=== PATIENT | female | born 1995 | race African-American/Black ===

== ENCOUNTER 2022-08-10 10:29 | Emergency (ER) | payer OTHER ==
[~2022-08-10] VITALS: Ht 170.2 cm; Wt 81.2 kg
[2022-08-10 10:30] VITALS: BP_SYST 119
--- NOTE | 2022-08-10 10:30 | NUR ---
BROUGHT BACK TO BED #6 AND TRIAGED, REPORT GIVEN TO CHARLOTTE
--- NOTE | 2022-08-10 10:35 | NUR ---
Bernardino stratton in ED - 08/10/22 at 1048 by JENNIFER BROUGHT BACK TO BED #6 AND TRIAGED, REPORT GIVEN TO [place]TE
[2022-08-10] MEDS ORDERED: ONDANSETRON HCL 4 MG/2 ML VIAL IVP ONE (10:45)
[2022-08-10] MEDS ORDERED: NACL 0.9% 1,000 ML IV ONE (10:45)
--- NOTE | 2022-08-10 10:45 | NUR ---
RECEIVED PT FROM DALY BARCENAS. PT BIB MOTHER WITH C/O N/V AND DIARRHEA, PT IS 14 WKS AND STATES SHE HAD SPOTTING THIS MORNING. PT IS AAOX4. ON R/A. ABDOMEN SOFT, NONTENDER, NONDISTENDED. BOWEL SOUNDS ACTIVE. SKIN INTACT. DENIES PAIN. SIDERAILS UP X2, MOTHER AT BEDSIDE.
--- NOTE | 2022-08-10 11:00 | NUR ---
URINE OBTAINED AND TAKEN TO LAB.
[2022-08-10 11:04] LABS: BILIRUBIN,URINE NEGATIVE (NEGATIVE); BLOOD, URINE NEGATIVE (NEGATIVE); CLARITY/URINE CLEAR (CLEAR); COLOR,URINE YELLOW (YELLOW); GLUCOSE,URINE NEGATIVE (NEGATIVE); KETONES,URINE NEGATIVE (NEGATIVE); LEUKOCYTE ESTERASE ,URINE NEGATIVE (NEGATIVE); NITRITE, URINE NEGATIVE (NEGATIVE); PH,URINE 6.5 (5.0-8.0); PROTEIN URINE NEGATIVE (NEGATIVE); UROBILINOGEN,URINE 0.2 (0.2-1.0)
[2022-08-10 11:16] LABS: BASOPHILS % (AUTO) 0.2 % (0.0-2.0); EOSINOPHILS % (AUTO) 0.3 % (0.0-4.0); HEMATOCRIT 33.5 % (36-48); HEMOGLOBIN 11.6 g/dL (12.0-16.0); LYMPHOCYTES # (AUTO) 1.2 K/uL (1.0-5.5); LYMPHOCYTES % (AUTO) 17.3 % (20.5-51.5); MEAN CORPUSCULAR HEMOGLOBIN 31 pg (27-31); MEAN CORPUSCULAR HGB CONC 35 % (32-36); MEAN CORPUSCULAR VOLUME 90 fL (79.0-98.0); MONOCYTES # (AUTO) 0.7 K/uL (0.0-1.0); MONOCYTES % (AUTO) 9.9 % (1.7-9.3); NEUTROPHILS # (AUTO) 4.9 K/uL (1.8-7.7); NEUTROPHILS % (AUTO) 72.3 % (40.0-70.0); PLATELET COUNT (AUTO) 148 K/uL (130-430); RED BLOOD CELL COUNT(AUTO) 3.75 MIL/uL (4.2-6.2); RED CELL DISTRIBUTION WIDTH 17.1 % (9.0-15.0); WHITE BLOOD COUNT (AUTO) 6.7 K/uL (4.8-10.8)
--- NOTE | 2022-08-10 11:39 | NUR ---
PT TAKEN TO U/S AT THIS TIME.
[2022-08-10 11:40] LABS: CALCIUM 8.9 mg/dL (8.4-11.0); CREATININE 0.65 mg/dL (0.55-1.30); POTASSIUM 3.6 mmol/L (3.5-5.1)
[2022-08-10 12:21] LABS: ALBUMIN 3.2 g/dL (3.4-4.8)
[2022-08-10 12:23] LABS: TOTAL BILIRUBIN 0.1 mg/dL (0.0-1.0)
[2022-08-10] MEDS ORDERED: RHO(D) IMMUNE GLOBULIN/MALTOSE 1500 UNITS/1.3 ML (WINHRO) INJ ONE (13:15)
--- NOTE | 2022-08-10 15:23 | NUR ---
RHOGAM IM GIVEN TO LEFT BUTTOCK. PT INFORMED OF ALLERGIC REACTION S/S. PT VERBALIZED UNDERSTANDING. PT WILL MONITORED FOR REACTION.
--- NOTE | 2022-08-10 16:00 | NUR ---
PT MONITORED FOR RHOGAM RX AND SHOWS NO S/S OF REACTION AT THIS TIME. Patient given written and verbal discharge instructions and verbalizes understanding. ER MD discussed with patient the results and treatment provided. Patient in stable condition. ID arm band removed. IV catheter removed intact and dressing applied, no active bleeding. Patient educated on pain management and to follow up with PMD. Pain Scale 0/10. . Opportunity for questions provided and answered. Medication side effect fact sheet provided.
[2022-08-10 16:10] VITALS: BP_SYST 104
== END 2022-08-10 16:00 | disposition home or self-care (01) ==
LOC: SED 10:29
DX: O26.892 Other specified pregnancy related conditions, second trimester (principal); O20.9 Hemorrhage in early pregnancy, unspecified; O98.512 Other viral diseases complicating pregnancy, second trimester; Z3A.14 14 weeks gestation of pregnancy
CPT/HCPCS: 99285; 86870; 96374; 76700; 76805; 96361; 80053; 84702; 85025; 86886; 86900; 86901; 36415; 81025; 96372; 81003; J2792; J2405; J2790; J7030